=== PATIENT | female | born 1970 | race Caucasian/White ===

== ENCOUNTER 2016-10-08 16:48 | Emergency (ER) | payer BC ==
[2016-10-08 16:54] VITALS: BP 126/80; PULSE 91; RESP 18; TEMP 98.2; O2SAT 99
--- NOTE | 2016-10-08 17:20 | ED PDOC ---
HPI: Back Time Seen by Provider: 10/08/16 16:50 Chief Complaint (Nursing): Back Pain Chief Complaint (Provider): back pain History Per: Patient History/Exam Limitations: no limitations Onset/Duration Of Symptoms: Days (x 2) Current Symptoms Are (Timing): Still Present Additional Complaint(s): Karina Sanders is a 46 year old female, with a previous medical history of chronic back pain, diabetes type 2, hypercholesterolemia and hypertension, who presents to the ED with complaints of back pain which worsened yesterday. Pt reports yesterday to lifting a heavy object which worsened her chronic back pain. Pt reports pain radiates to the mid thigh. Pt denies any incontinency, numbness, tingling nausea, vomiting or abdominal pain. Pt is requesting for an MRI. PMD: Kamlesh Ward MD Past Medical History Reviewed: Historical Data, Nursing Documentation, Vital Signs Vital Signs: Last Vital Signs Temp 98.2 F 10/08/16 16:51 Pulse 91 H 10/08/16 16:51 Resp 18 10/08/16 16:51 BP 126/80 10/08/16 16:51 Pulse Ox 99 10/08/16 16:51 - Medical History PMH: Diabetes (type 2), HTN, Hypercholesterolemia - Family History Family History: States: Unknown Family Hx - Home Medications Home Medications: Ambulatory Orders Medication Instructions Recorded Ibuprofen [Motrin] 600 mg PO Q8 PRN #6 tab 04/22/15 Penicillin V Potassium [Pen-Vee K] 500 mg PO QID 7 Days 04/22/15 Cyclobenzaprine [Cyclobenzaprine 10 mg PO BID #14 tab 10/08/16 HCl] Ibuprofen [Motrin] 400 mg PO Q6 #30 tab 10/08/16 - Allergies Allergies/Adverse Reactions: Allergies Allergy/AdvReac Type Severity Reaction Status Date / Time No Known Allergies Allergy Verified 04/22/15 08:56 Review of Systems ROS Statement: Except As Marked, All Systems Reviewed And Found Negative Gastrointestinal: Negative for: Nausea, Vomiting, Abdominal Pain Musculoskeletal: Positive for: Back Pain, Leg Pain Neurological: Negative for: Numbness, Other (tingling) Physical Exam - Reviewed Nursing Documentation Reviewed: Yes Vital Signs Reviewed: Yes - Physical Exam Appears: Positive for: Well, Non-toxic, No Acute Distress Head Exam: Positive for: ATRAUMATIC, NORMAL INSPECTION, NORMOCEPHALIC Skin: Positive for: Normal Color, Warm, Dry Cardiovascular/Chest: Positive for: Regular Rate, Rhythm Respiratory: Positive for: CNT, Normal Breath Sounds Back: Positive for: Other (lower paraspinal tenderness). Negative for: L CVA Tenderness, R CVA Tenderness, Vertebral Tenderness Extremity: Positive for: Normal ROM. Negative for: Tenderness, Calf Tenderness , Deformity, Swelling, Other (bilateral straight leg raise) Neurologic/Psych: Positive for: Alert, Oriented. Negative for: Motor/Sensory Deficits - ECG O2 Sat by Pulse Oximetry: 99 (RA) Pulse Ox Interpretation: Normal Medical Decision Making Medical Decision Making: Initial Impression: sciatica vs muscle spasm Initial Plan: * urine * toradol * reevaluation Pt improved in Ed will f.u with specialist and pmd and take motrin for pain. Scribe Attestation: Documented by Nicol Russ, acting as a scribe for Caitlyn Esquivel PA-C. Provider Scribe Attestation: All medical record entries made by the Scribe were at my direction and personally dictated by me. I have reviewed the chart and agree that the record accurately reflects my personal performance of the history, physical exam, medical decision making, and the department course for this patient. I have also personally directed, reviewed, and agree with the discharge instructions and disposition Disposition - Clinical Impression Clinical Impression: Back pain - Patient ED Disposition Is Patient to be Admitted: No Counseled Patient/Family Regarding: Diagnosis, Need For Followup, Rx Given - Disposition Referrals: Ayo Ludwig MD [Staff Provider] - [facility] [Provider Group] [facility] [Outside] Aditya Christianson MD [Staff Provider] - Disposition: Routine/Home Disposition Time: 18:19 Condition: STABLE Prescriptions: Cyclobenzaprine [Cyclobenzaprine HCl] 10 mg PO BID #14 tab Ibuprofen [Motrin] 400 mg PO Q6 #30 tab Instructions: Sciatica (ED), Lumbar Radiculopathy (ED), Back Exercises (ED) Forms: [facility] ED School/Work Excuse
== END 2016-10-08 18:35 | disposition home or self-care (01) ==
LOC: H.ER 16:48
DX: M54.9 Dorsalgia, unspecified (principal); E11.9 Type 2 diabetes mellitus without complications; E78.00 Pure hypercholesterolemia, unspecified; I10 Essential (primary) hypertension
CPT/HCPCS: 81025; 96372; 99282; J1885